=== PATIENT | male | born 1950 | race Caucasian/White ===

== ENCOUNTER → 2018-03-06 07:05 | Outpatient (CLI) | payer MEDICARE, OTHER, SELFPAY ==
--- NOTE | 2018-03-06 07:09 | DI.RAD.S_ITS ---
PROCEDURE: XR LUMBAR SPINE 2-3V INDICATIONS: pain TECHNIQUE: 3 views of the lumbar spine were acquired. COMPARISON: [facility], , CHEST 2 VIEW, 07/29/2015, 10:53. FINDINGS: Bones: 5 [id number] vertebrae are present. There is there is grade 1 anterolisthesis of L4 on L5, measuring 6 mm. There is multilevel trace retrolisthesis route all levels the remaining lumbar spine. Moderate to severe multilevel disc space narrowing is present most severe at L5-S1. Severe foraminal narrowing is noted at T12. This is an unchanged appearance of T12 compression deformity. Soft tissues: Overlying bowel gas pattern is normal. No suspicious soft tissue calcifications. IMPRESSION: Multilevel degenerative changes as above. No visualized acute fracture or dislocation. However, if clinical concern and/or pain persist, short interval imaging followup in 7-10 days is recommended, as occult injury cannot be definitively excluded. Dictated by: Shelli Kaplan M.D. on 03/06/2018 at 10:34 Approved by: Shelli Kaplan M.D. on 03/06/2018 at 10:36
[2018-03-06 08:26] LABS: Add Manual Diff / Slide Review NO; Basophils Percent Auto 0.2 % (0-2); Eosinophils Percent Auto 2.7 % (2-4); Hematocrit 40.2 % (41-53); Hemoglobin 13.7 g/dL (13.5-17.5); Lymphocytes Percent Auto 29.9 % (25-40); Mean Corpuscular HGB Conc 33.9 % (30-36); Mean Corpuscular Hemoglobin 30.8 PG (26-34); Mean Corpuscular Volume 90.7 fL (80-100); Monocytes Percent Auto 12.5 % (3-14); Neutrophils Absolute Auto 3700 /uL (3000-5900); Neutrophils Percent Auto 54.7 % (50-75); Platelet Count 196 X10^3/uL (150-400); Red Blood Cell Count 4.44 X10^6/uL (4.5-5.9); Red Cell Distribution Width 13.8 % (11.6-14.8); White Blood Cell Count 6.8 X10^3/uL (4.5-11.0)
[2018-03-06 08:35] LABS: Hemoglobin A1C% w Est Avg Glu 5.8 % (4.0-6.0)
[2018-03-06 08:38] LABS: Alanine Aminotransferase 27 IU/L (21-72); Albumin 4.2 g/dL (3.5-5.0); Albumin Globulin Ratio 1.6 (1.0-2.8); Alkaline Phosphatase 72 U/L (38-126); Aspartate Aminotransferase 27 IU/L (17-59); BUN Creatinine Ratio 24.3 (6-22); Blood Urea Nitrogen 17 mg/dL (9-20); Calcium 9.6 mg/dL (8.4-10.2); Carbon Dioxide 32 mmol/L (22-32); Chloride 104 mmol/L (98-107); Cholesterol 131 mg/dL (140-199); Estimated Glomerular Filt Rate > 60.0 mL/min (>60); Globulin 2.7 g/dL (1.7-4.1); Glucose 103 mg/dL (80-110); HDL Cholesterol 38 mg/dL (40-60); HEMOLYSIS < 15 (0-50); LDL Cholesterol Calculated 71 mg/dL (<100); Potassium 4.5 mmol/L (3.4-5.1); Sodium 145 mmol/L (137-145); Total Protein 6.9 g/dL (6.3-8.2); Triglycerides 110 mg/dL (35-150)
[2018-03-06 08:51] LABS: Creatinine Urine Random 112.6 mg/dL
[2018-03-06 09:09] LABS: Microalbumi Creatinin Ratio Ur 5.3 ug/mg CR (<30); Microalbumin Urine Random < 0.6 mg/dL (0-1.6)
[2018-03-06 09:20] LABS: TSH w/ Reflex to FT4 1.35 uIU/mL (0.47-4.68)
[2018-03-06 09:25] LABS: Prostate Specific Antigen Scrn 0.278 ng/mL (0.1-4.0)
== END ==
PROVIDERS: Nurse Practitioner Family; PCP Family Medicine; Visit Provider Family Medicine
DX: E11.9 Type 2 diabetes mellitus without complications (principal); E66.01 Morbid (severe) obesity due to excess calories; Z68.35 Body mass index [BMI] 35.0-35.9, adult; E78.5 Hyperlipidemia, unspecified; I10 Essential (primary) hypertension; M54.5 Low back pain
CPT/HCPCS: 72100; 80053; 80061; 82043; 82570; 83036; 84443; 85025; G0103

== ENCOUNTER → 2018-06-20 07:43 | Outpatient (CLI) | payer MEDICARE, OTHER, SELFPAY ==
[2018-06-20 09:04] LABS: Hemoglobin A1C% w Est Avg Glu 5.9 % (4.0-6.0)
== END ==
PROVIDERS: PCP Family Medicine; Visit Provider Family Medicine
DX: E11.9 Type 2 diabetes mellitus without complications (principal); E66.01 Morbid (severe) obesity due to excess calories; Z68.35 Body mass index [BMI] 35.0-35.9, adult
CPT/HCPCS: 36415; 83036

== ENCOUNTER → 2019-06-29 11:50 | Outpatient (CLI) | payer MEDICARE, OTHER, SELFPAY ==
[2019-06-29 13:33] LABS: Hemoglobin A1C% w Est Avg Glu 5.5 % (4.0-6.0)
[2019-06-29 13:40] LABS: Add Manual Diff / Slide Review NO; Basophils Absolute Auto 0 /uL (0-100); Basophils Percent Auto 0.3 % (0-2); Eosinophils Absolute Auto 200 /uL (0-450); Eosinophils Percent Auto 2.5 % (2-4); Hematocrit 42.9 % (41-53); Hemoglobin 14.7 g/dL (13.5-17.5); Lymphocytes Absolute Auto 2600 /uL (1100-4500); Lymphocytes Percent Auto 39.7 % (25-40); Mean Corpuscular HGB Conc 34.3 % (30-36); Mean Corpuscular Hemoglobin 31.1 PG (26-34); Mean Corpuscular Volume 90.6 fL (80-100); Monocytes Absolute Auto 800 /uL (0-900); Monocytes Percent Auto 12.9 % (3-14); Neutrophils Absolute Auto 2900 /uL (1500-7000); Neutrophils Percent Auto 44.6 % (50-75); Platelet Count 200 X10^3/uL (150-400); Red Blood Cell Count 4.73 X10^6/uL (4.5-5.9); Red Cell Distribution Width 13.7 % (11.6-14.8); White Blood Cell Count 6.6 X10^3/uL (4.5-11.0)
[2019-06-29 14:12] LABS: Alanine Aminotransferase 28 IU/L (<50); Albumin 4.8 g/dL (3.5-5.0); Albumin Globulin Ratio 1.8 (1.0-2.8); Alkaline Phosphatase 83 U/L (38-126); Aspartate Aminotransferase 35 IU/L (17-59); BUN Creatinine Ratio 27.1 (6-22); Bilirubin Total 0.9 mg/dL (0.2-1.3); Blood Urea Nitrogen 19 mg/dL (9-20); Calcium 10.1 mg/dL (8.4-10.2); Carbon Dioxide 32 mmol/L (22-32); Chloride 100 mmol/L (98-107); Cholesterol 169 mg/dL (140-199); Estimated Glomerular Filt Rate > 60.0 mL/min (>60); Globulin 2.6 g/dL (1.7-4.1); Glucose 106 mg/dL (80-110); HDL Cholesterol 42 mg/dL (40-60); HEMOLYSIS < 15 (0-50); LDL Cholesterol Calculated 96 mg/dL (<100); Potassium 4.9 mmol/L (3.4-5.1); Sodium 140 mmol/L (137-145); Total Protein 7.4 g/dL (6.3-8.2); Triglycerides 155 mg/dL (35-150)
[2019-06-29 14:38] LABS: Prostate Specific Antigen Scrn 0.324 ng/mL (0.1-4.0)
== END ==
PROVIDERS: PCP Family Medicine; Visit Provider Family Medicine
DX: E11.9 Type 2 diabetes mellitus without complications (principal); Z12.5 Encounter for screening for malignant neoplasm of prostate
CPT/HCPCS: 36415; 80053; 80061; 83036; 85025; G0103

== ENCOUNTER → 2019-07-31 08:01 | Outpatient (CLI) | payer MEDICARE, OTHER, SELFPAY ==
[2019-07-31 09:49] LABS: Add Manual Diff / Slide Review NO; Basophils Absolute Auto 0 /uL (0-100); Basophils Percent Auto 0.2 % (0-2); Eosinophils Absolute Auto 200 /uL (0-450); Eosinophils Percent Auto 2.8 % (2-4); Hematocrit 39.3 % (41-53); Hemoglobin 13.6 g/dL (13.5-17.5); Lymphocytes Absolute Auto 2400 /uL (1100-4500); Lymphocytes Percent Auto 42.1 % (25-40); Mean Corpuscular HGB Conc 34.5 % (30-36); Mean Corpuscular Volume 89.7 fL (80-100); Monocytes Absolute Auto 800 /uL (0-900); Neutrophils Absolute Auto 2400 /uL (1500-7000); Neutrophils Percent Auto 41.9 % (50-75); Platelet Count 178 X10^3/uL (150-400); Red Blood Cell Count 4.38 X10^6/uL (4.5-5.9); Red Cell Distribution Width 13.6 % (11.6-14.8); White Blood Cell Count 5.8 X10^3/uL (4.5-11.0)
[2019-07-31 10:07] LABS: Hemoglobin A1C% w Est Avg Glu 5.5 % (4.0-6.0)
[2019-07-31 10:12] LABS: Carbon Dioxide 30 mmol/L (22-32); Chloride 104 mmol/L (98-107); HEMOLYSIS < 15 (0-50); Sodium 141 mmol/L (137-145)
== END ==
PROVIDERS: Orthopaedic Surgery Adult Reconstructive Orthopaedic Surgery; PCP Family Medicine; Visit Provider Family Medicine
DX: Z01.818 Encounter for other preprocedural examination (principal); Z01.812 Encounter for preprocedural laboratory examination; R73.9 Hyperglycemia, unspecified
CPT/HCPCS: 36415; 80051; 83036; 85025; 93005

== ENCOUNTER 2019-09-07 06:15 | Day surgery (SDC) | payer MEDICARE, OTHER, SELFPAY ==
[2019-09-03 07:33] VITALS: BMI 31.9
[2019-09-07] VITALS (15 sets, daily range): BP systolic 94–121; BP diastolic 52–72; PULSE 62–89; RESP 14–20; TEMP 36.2–37.6; O2SAT 77–98; BMI 30.7
--- NOTE | 2019-09-07 | DI.RAD.S_ITS ---
PROCEDURE: XR KNEE RT 1TO2V INDICATIONS: post op TECHNIQUE: 2 view(s) of the knee acquired. COMPARISON: None. FINDINGS: Bones: Patient is status post knee joint arthroplasty. Hardware components are in expected positions. Visualized bony structures are intact. Soft tissues: Overlying postoperative changes are noted. IMPRESSION: Normal alignment after right total knee arthroplasty. Dictated by: Joseph Gar M.D. on 09/07/2019 at 10:51 Approved by: Joseph Gar M.D. on 09/07/2019 at 10:51
[2019-09-07] MEDS: PREGABALIN 75 MG CAPSULE PO (06:54)
[2019-09-07] MEDS: CELECOXIB 200 MG CAPSULE PO (06:54)
[2019-09-07] MEDS: ACETAMINOPHEN 325 MG TABLET 975 MG PO (06:54)
[2019-09-07] MEDS: LACTATED RINGERS 1,000 ML 42 ML IV ×2 (06:55→10:22)
--- NOTE | 2019-09-07 07:44 | PM.PREOP ---
Pre-operative Note Interval Note History & Physical reviewed/Exam performed by Physician: Yes Changes to H&P: No H&P completed within 30 days and has changed as indicated here:: Plan for R TKA
[2019-09-07] MEDS: CEFAZOLIN 2 GM/100 ML FROZ.PIGGY IV ×3 (07:46→23:34)
[2019-09-07] MEDS: TRANEXAMIC ACID 1,000 MG VIAL 1000 MG INJ (08:14)
--- NOTE | 2019-09-07 08:24 | SUR.OPER ---
Supine on padded OR bed. Pillow under head, arms secured on padded armboards <90 degree abduction. Safety belt across torso. Non-operative leg secured with tape over blanket over lower leg. Operative leg on foam roller positioner. bump under right hip.
[2019-09-07] MEDS: ROPIVACAINE 0.5% PF 5 MG/ML 20ML VIAL 60 ML INJ (08:39)
[2019-09-07] MEDS: MORPHINE 4 MG/ML INJ INJ (08:41)
[2019-09-07] MEDS: KETOROLAC 30 MG/ML VIAL IV (08:41)
[2019-09-07] MEDS: SODIUM CHLORIDE IRRIG SOLUTION 250 ML, POVIDONE-IODINE SPONGE STICKS 1 APPLIC IRR (08:42)
--- NOTE | 2019-09-07 09:53 | PM.OP.1 ---
Operative Date/Time/Diagnoses Date of procedure: 09/07/19 Time of procedure: 09:53 Pre-op diagnosis: Right knee osteoarthritis Post-op diagnosis: same Procedure & Clinicians Procedure: Right total knee arthroplasty Same procedure as scheduled: Yes Indications: Advanced osteoarthritis of the right knee with valgus deformity Surgeon: Carlos Desouza Ethylene Plant Helper: Александр Pitts Anesthesia Type: General and Spinal Operative Notes Findings: Advanced osteoarthritis of the lateral compartment and valgus deformity of the right knee Closure Type: primary Specimen(s): none sent Prosthetic devices, grafts, tissues, transplants, or devices: [employer] Journey 2 knee size 6 femur (right) Size 5 tibial base plate (right) Size 5-6 right 11 mm deep dish poly 32 mm oval patellar button Estimated Blood Loss (mL): 50 Blood products transfused: none Tourniquet time (min): 90 Procedure in detail: Patient is met in the preoperative holding area where the site and side of surgery were marked by MD all last minute questions were reviewed and answered. Patient was then brought back in the operating room we transferred onto the operating room table and received a spinal anesthetic. He was then placed in the supine position he was induced under general anesthesia. The right lower extremity was then prepped and draped in normal sterile fashion after a nonsterile tourniquet was placed. A surgical time-out was performed verifying the site and side of surgery as well as the name of the patient. The right lower extremity was exsanguinated and the tourniquet was insufflated to 250 mm of mercury. A longitudinal incision was made over the right knee skin incision was made using a 10 blade followed by a new 10 blade down through subcutaneous tissue down to the extensor mechanism. A medial parapatellar arthrotomy was then performed. Large osteophytes off the superior pole of the patella was then removed. A minimal medial peel was then performed and Hoffa's fat pad was excised. The lateral meniscus was then removed. The remnants of the ACL removed although there is very little to begin with. We then drilled into the femoral canal approximately 0.5 cm anterior to the PCL footprint within drilled to gain access the tibial canal approximately at the ACL footprint. The right distal femur was then cut using a right 5 degree cutting jig. A chad was then placed on the center of the tibia and a 3 degree posterior slope cut was performed. A 9 mm thick extension block was then trialed and was found to be too tight globally as well as laterally. Two more mm were taken off the distal femur as well as 2 more mm off the proximal tibia. A lateral pie crusting was then performed as well. This was repeated several times until the lateral joint space was roughly equal to the medial joint space. At this point a 10 mm extension block fit well. We moved on to sizing the femur. The femur sized to a size 6 and the 5 in 1 cutting block was then placed. Our epicondylar axis was marked and are Whitesides line was also marked we had external rotation of the femoral component. Cuts were then made. A trial size 6 right femur was then placed was a size 5 tibia with a 10 mm poly. This came out to full extension and does have some medial jogging but I think within acceptable limits. The patella was then cut with a freehand and a 32 mm size patella was drilled for. Patella was placed and the patella tracked well. No lateral release was required for patellar tracking. Trial components were then removed after marking tibial base plate rotation. The size 5 tibial base plate was appropriately sized. This was then drilled and punched. Cement was then removed the cut surfaces were then pulse lavaged. And dried. Cement was then finger packed into the tibial hole as well as the tibial cut surface was placed on the back of the tibia. This was then placed and impacted. All excess cement was then removed cement was then placed on the anterior distal and posterior chamfer cut of the femur. This was finger packed as well. Cement was also placed minimally on the posterior flange of the femoral component. This was then malleted into place all excess cement was removed and a size 10 trial poly was then placed the knee was brought into full extension while holding the lower leg in internal rotation. The patella was then cemented and clamped in place all excess cement was removed. Betadine solution was placed in the wound while the cement cured. Once the cement was cured Betadine solution was pulse lavaged away the trial poly was removed all excess cement was removed any loose pieces that we saw were also removed. We then trialed with a size 11 deep dish poly and found this to still reach full extension while improving medial lateral stability. This was selected. A final size 11 mm thick 5 6 deep dish right poly was selected and placed. The medial parapatellar arthrotomy was closed using 1. Vicryl in interrupted fashion followed by 2 Vicryl in the subcutaneous tissue followed by a strata fix followed by Aquacel dressing. Complications: none Post-operative Condition: stable Disposition: PACU Plan for aftercare: Weightbearing as tolerated right lower extremity. Six weeks of aspirin 81 mg b.i.d. for DVT prophylaxis. 24 hours of postop antibiotics
[2019-09-07] MEDS: OXYCODONE IR 5 MG TABLET PO ×2 (10:26→17:45)
--- NOTE | 2019-09-07 10:56 | PC.NURSE ---
Addendum entered by Cydney Salazar R.N. 09/07/19 15:12: Patient up with physical therapy, voided a good amount of urine per patient and physical therapist. Urine was unmeasured. Addendum entered by Cydney Salazar R.N. 09/07/19 14:26: Patient denies need to void, bladder scanned for 236cc. Patient reports voiding at home this am before coming to the hospital. PACU nurse reports no void while in the OR or in recovery. PAtient will get out of bed with therapy and attempt to void while up. Original Note: Patient drowsy but easily aroused, rates pain to right knee 3/10, given 5mg PO oxycodone in PACU. Sats on RA while sleeping 91-92%, CMS+, scd's on, denies nausea. Pt oriented to room and call light.
[2019-09-07] MEDS: LACTATED RINGERS 1,000 ML 125 ML IV ×2 (10:59→20:40)
[2019-09-07 11:31] LABS: Add Manual Diff / Slide Review NO; Basophils Absolute Auto 0 /uL (0-100); Basophils Percent Auto 0.2 % (0-2); Eosinophils Absolute Auto 100 /uL (0-450); Hematocrit 35.3 % (41-53); Hemoglobin 12.2 g/dL (13.5-17.5); Lymphocytes Absolute Auto 1600 /uL (1100-4500); Lymphocytes Percent Auto 15.8 % (25-40); Mean Corpuscular HGB Conc 34.6 % (30-36); Mean Corpuscular Hemoglobin 30.9 PG (26-34); Mean Corpuscular Volume 89.5 fL (80-100); Monocytes Absolute Auto 800 /uL (0-900); Monocytes Percent Auto 7.8 % (3-14); Neutrophils Absolute Auto 7600 /uL (1500-7000); Neutrophils Percent Auto 75.2 % (50-75); Platelet Count 152 X10^3/uL (150-400); Red Blood Cell Count 3.95 X10^6/uL (4.5-5.9); Red Cell Distribution Width 13.7 % (11.6-14.8); White Blood Cell Count 10.1 X10^3/uL (4.5-11.0)
[2019-09-07] MEDS: ACETAMINOPHEN 325 MG TABLET 650 MG PO ×2 (14:37→20:41)
--- NOTE | 2019-09-07 15:43 | PT.IIE ---
Addendum entered and electronically signed by Beata Trevizo PT 09/07/19 15:50: BP was 105/54 sitting EOB before ambulation and 89/49 after activity. Pt was asymptomatic. Original Note: Current Diagnoses Unilateral primary osteoarthritis, right knee (09/07/19) Surgery Performed Operation Date: 09/07/19 07:45 Actual Procedures p Total Knee Arthroplasty(Right) - Carlos Desouza MD Surgical History (Last Updated 09/03/19 @ 08:10 by Usha Pozo RN) Anesthesia (Resolved) History of carpal tunnel repair (~1993) History of rectal sphincterotomy (Resolved ~04/30/06) History of vein stripping (Resolved ~1999) Status post cholecystectomy (~1991) Status post colonoscopy (~2011) Status post rotator cuff repair (~2002) Tear meniscus knee (Resolved ~2006) Medical History (Last Updated 03/03/18 @ 19:43 by Olga Cabral) Diabetes mellitus (Chronic ~1999) Physical Therapy Inpatient Evaluation/Re-Eval M1 PT/OT-IP Prior Functional Status Start: 09/07/19 14:40 Freq: NEEDED Status: Active Protocol: Document 09/07/19 15:28 AW (Rec: 09/07/19 15:43 AW [id number]) Medical Review Prior Functional Status Medical History Reviewed Yes Communication Pt is an effective verbal communicator Mobility and Gait Independent without device and without limit for level surface walking Activities of Daily Living and IADL's Independent Social History Household Members spouse,children Living Arrangements House Home Environment High Toilet,Tub/Shower Home Equipment Front Wheel Walker,Straight Cane,Raised Toilet Seat w/ Armrests Employment Status [employer] Employed Additional Social History Comment Pt lives with his , Sarah, who is available 21/01 to assist. 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 M2 PT-IP Current Condition Start: 09/07/19 14:40 Freq: NEEDED Status: Active Protocol: Document 09/07/19 15:28 AW (Rec: 09/07/19 15:43 AW [id number]) Physical Therapy Current Condition Current Condition Evaluation Date 09/07/19 Treatment Diagnosis R TKA; impaired mobility Onset Date 09/07/19 Weight Bearing Status Weight Bearing Status Weight Bear as Tolerated M3 PT-IP Subjective Start: 09/07/19 14:40 Freq: NEEDED Status: Active Protocol: Document 09/07/19 15:28 AW (Rec: 09/07/19 15:43 AW [id number]) Subjective Physical Therapy Visit Type Type Initial Evaluation Visit Start Time 14:45 Visit Stop Time 15:20 Total Visit Minutes 35 Notes Pt's spouse, Sarah, present throughout evaluation Physical Therapy Visit Comments Patient Comments Pt happy to mobilize with PT Patient Goals Pt expects to return home with spouse assist Therapy Pain Assessment Pain When Pain Assessed During Mobility Pain Present Pain Present Pain Reported Location lower back and knees Intensity 3 Scale Used Numeric (1 - 10) Pain Management Techniques Apply Cold,Re-positioning, Timing of Activity with Medications M4 PT-IP Mobility and Gait Start: 09/07/19 14:40 Freq: NEEDED Status: Active Protocol: Document 09/07/19 15:28 AW (Rec: 09/07/19 15:43 AW [id number]) PT-Bed Mobility Assessment Supine to Sit Supine to Sit Contact Guard Assistance Scooting Scooting to Edge of Bed Standby Assistance PT-Transfer Assessment Sit to and From Stand Sit to and from Stand Contact Guard Assistance,Use of Upper Extremities Equipment Transfer Assistive Device Gait Belt,Front Wheeled Walker Orthotic/Prosthetic Devices or Brace: No Transfers Transfer Destination Chair Transfer Technique pt ambulated with FWW Transfer Ability Level of Assist Contact Guard Assistance Comments Mobility Comments Pt sitting up in bed visiting with his upon PT arrival. He completed supine to sit CGA with support for the operative leg. He stood using FWW CGA and ambulated to the bathroom where he stood to void urine using grab bars for support. (Unmeasured void reported to RN) He then ambulated in the hallway for gait assessment with FWW before returning to the room and transferring to the chair CGA and cues for positioning the RLE. Pt was positioned in the chair with call light and all needs within reach. He was educated to use the call light for all mobility needs. Gait Assessment Gait Gait Assistance Required: Contact Guard Assist Distance (Feet) 75 Able to Maintain Weight Bearing Status Yes During Gait Assistive Devices Assistive Device Gait Belt,Front Wheeled Walker Orthotic/Prosthetic Devices or Brace: No Gait Deviations General Gait Pattern Antalgic,Decreased Stride Length,Decreased Feet Clearance,Flexed Trunk,Step-to Gait Factors Limiting Gait Function Factors Limiting Gait Function Decreased Activity Tolerance, Decreased Strength,Limited Range of Motion,Pain Comments Gait Comments Pt ambulated ~75 feet with FWW CGA. Initial gait pattern was step-to but pt was able to correct without cues. Stair Climbing Assessment Comments Stair Climbing Comments Not assessed. No stairs at home. PT-Balance Assessment Sitting Balance and Reactions Static Sitting Balance Ability Normal Dynamic Sitting Balance Ability Normal Standing Balance and Reactions Static Standing Balance Ability Good Dynamic Standing Balance Ability Good Device Used FWW M5 PT-IP Objective Assessments Start: 09/07/19 14:40 Freq: NEEDED Status: Active Protocol: Document 09/07/19 15:28 AW (Rec: 09/07/19 15:43 AW [id number]) Orientation Orientation/Cognition Level of Alertness Alert Orientation Name,Date,Day of Week,Place, Situation Language Function Ability No Deficits Noted Safety Awareness Understands Safety Issues Memory Description No Deficits Noted Gross Range of Motion Lower Extremity ROM Assessment Right Impaired Strength Lower Extremity Strength Assessment Right Impaired Comments Strength Comments LLE grossly 5/5. R hip and ankle 4+/5. Coordination Assessment Gross Coordination Gross Coordination WNL Sensation Assessment Sensation Gross Sensation Right LE Impaired,Left LE Impaired Comments Sensation Comments Pt notes he has occasional episodes of numb/tingling feet which he attributes to diabetic neuropathy. M6 PT-IP Treatment Start: 09/07/19 14:40 Freq: NEEDED Status: Active Protocol: Document 09/07/19 15:28 AW (Rec: 09/07/19 15:43 AW [id number]) Physical Therapy Treatment Exercises Exercises Ankle Pumps,Quad Sets,Heel Slides,Passive Knee Extension Hang Education Education Provided Precautions,Weight Bearing Status,Post-Op Packet,Safety Other Treatments Other Treatment Performed Provided education on role of PT, plan of care, weightbearing status, and safe use of FWW M7 PT-IP Assessment and Plan Start: 09/07/19 14:40 Freq: NEEDED Status: Active Protocol: Document 09/07/19 15:28 AW (Rec: 09/07/19 15:43 AW [id number]) PT Summary Assessment and Plan Potential Rehabilitation Potential Excellent Status of Condition at Evaluation Evolving Summary Impairments Pain,ROM,Strength,Sensation, Bed Mobility,Transfers,Gait, Activity Tolerance Assessment Summary Deepak is a 69 yo man seen for PT evaluation on POD0 following R TKA. At baseline, he is independent in all regards. On evaluation, he required SBA to CGA for all mobilties. PT anticipates he will meet the goals of this plan of care and be safe to discharge to his home environment with spouse support and outpatient PT once medically stable. Goals Bed Mobility Goal Independent Transfer Goal Independent,Front Wheeled Walker Gait Goal Independent,Front Wheel Walker Gait Distance 200 Days to Meet Goals 2 Frequency of Treatment Frequency Of Treatment Twice a Day Treatment Plan Physical Therapy Treatment Plan Bed Mobility Training,Transfer Training,Gait Training, Therapeutic Exercise,Balance Retraining,Post Op Education, Discharge Planning,Hot or Cold Pack,Neuromuscular Re-ed, Coordination Retraining,Manual Therapy Other Recommendations and Next Treatment review ther ex, progress gait Focus distance, ask spouse about any caregiver questions she may have Recommendations To Nursing Amount of Assist Needed Standby Assistance Discharge Recommendations PT Discharge Recommendations Home with Assistance, Outpatient PT Transportation Needs at Discharge Private Vehicle
[2019-09-07] MEDS: DOCUSATE 100 MG CAPSULE PO (20:40)
[2019-09-07] MEDS: ASPIRIN EC 81 MG TABLET PO (20:40)
[2019-09-07] MEDS: ATORVASTATIN 10 MG TABLET PO (20:40)
--- NOTE | 2019-09-07 20:59 | PC.NURSE ---
Patient resting in bed most of the shift. Up a couple of times to use the bathroom. Pain has been controlled well with Tylenol and oxycodone. CMS +, Joyg CDI. Patient has been A&O, calm and cooperative.
[2019-09-08] MEDS: OXYCODONE IR 5 MG TABLET PO ×3 (04:03→12:08)
[2019-09-08] MEDS: hydrOXYzine pamoate 25 MG CAPSULE PO ×2 (05:02→12:14)
[2019-09-08 06:14] LABS: Hematocrit 33.5 % (41-53); Hemoglobin 11.6 g/dL (13.5-17.5)
[2019-09-08] MEDS: ACETAMINOPHEN 325 MG TABLET 650 MG PO (07:56)
[2019-09-08] MEDS: DOCUSATE 100 MG CAPSULE PO (07:56)
[2019-09-08] MEDS: ASPIRIN EC 81 MG TABLET PO (07:56)
[2019-09-08] MEDS: CANDESARTAN 16 MG TABLET 4 MG PO (07:56)
[2019-09-08] MEDS: SODIUM CHLORIDE 0.9% FLUSH 10 ML IV (07:57)
[2019-09-08 08:00] VITALS: BP 132/61; PULSE 994; RESP 17; TEMP 36.4; O2SAT 95
--- NOTE | 2019-09-08 10:08 | PT.IPTN ---
Current Diagnoses Unilateral primary osteoarthritis, right knee (09/07/19) Surgery Performed Operation Date: 09/07/19 07:45 Actual Procedures p Total Knee Arthroplasty(Right) - Carlos Desouza MD Physical Therapy Treatment Note M2 PT-IP Current Condition Start: 09/07/19 14:40 Freq: NEEDED Status: Active Protocol: Document 09/07/19 15:28 AW (Rec: 09/07/19 15:43 AW [id number]) Physical Therapy Current Condition Current Condition Evaluation Date 09/07/19 Treatment Diagnosis R TKA; impaired mobility Onset Date 09/07/19 Weight Bearing Status Weight Bearing Status Weight Bear as Tolerated M3 PT-IP Subjective Start: 09/07/19 14:40 Freq: NEEDED Status: Active Protocol: Document 09/08/19 10:08 CLB (Rec: 09/08/19 11:36 CLB [id number]) Subjective Physical Therapy Visit Type Type Treatment Note Visit Start Time 10:08 Visit Stop Time 10:39 Total Visit Minutes 31 Number of AIR TRAFFIC CONTROL SPECIALIST Visits 1 Physical Therapy Visit Comments Patient Comments Pt willing to work with therapy. Therapy Pain Assessment Pain When Pain Assessed At Rest Pain Present Pain Present Pain Reported Location lower back and knees Intensity 5 Scale Used Numeric (1 - 10) 4/10 during mobility Pain Management Techniques Apply Cold,Re-positioning, Timing of Activity with Medications M4 PT-IP Mobility and Gait Start: 09/07/19 14:40 Freq: NEEDED Status: Active Protocol: Document 09/08/19 10:08 CLB (Rec: 09/08/19 11:36 CLB [id number]) PT-Bed Mobility Assessment Supine to Sit Supine to Sit Standby Assistance Scooting Scooting to Edge of Bed Standby Assistance PT-Transfer Assessment Sit to and From Stand Sit to and from Stand Standby Assistance,Use of Upper Extremities Equipment Transfer Assistive Device Gait Belt,Front Wheeled Walker Orthotic/Prosthetic Devices or Brace: No Transfers Transfer Destination Chair Transfer Technique pt ambulated with FWW Transfer Ability Level of Assist Standby Assistance Comments Mobility Comments Pt in bed upon arrival, pt performed ther ex in bed with education on keeping knee straight while in supine. Pt got OOB SBA with use of LLE hooked under RLE. Pt stood SBA recalling the he needed to push from bed for safety. Pt ambulated in room first for education for walker use then in sears with cues for posture and forward gaze. Pt returned to room to sit in chair SBA. Pt left in chair with all needs within reach. Will return to see pt for one more tx before d/c. Gait Assessment Gait Gait Assistance Required: Standby Assistance,Contact Guard Assist,1 Person Assist Distance (Feet) 200 Able to Maintain Weight Bearing Status Yes During Gait Assistive Devices Assistive Device Gait Belt,Front Wheeled Walker Orthotic/Prosthetic Devices or Brace: No Gait Deviations General Gait Pattern Antalgic,Decreased Stride Length,Decreased Feet Clearance,Flexed Trunk,Step-to Gait Factors Limiting Gait Function Factors Limiting Gait Function Decreased Activity Tolerance, Decreased Strength,Limited Range of Motion,Pain Comments Gait Comments Pt ambulated ~200ft with cues for proper sequencing for walker/step use. Pt used small step-thru gait pattern. Stair Climbing Assessment Comments Stair Climbing Comments Not assessed. No stairs at home. PT-Balance Assessment Sitting Balance and Reactions Static Sitting Balance Ability Normal Dynamic Sitting Balance Ability Normal Standing Balance and Reactions Static Standing Balance Ability Good Dynamic Standing Balance Ability Good Device Used FWW M5 PT-IP Objective Assessments Start: 09/07/19 14:40 Freq: NEEDED Status: Active Protocol: Document 09/07/19 15:28 AW (Rec: 09/07/19 15:43 AW [id number]) Orientation Orientation/Cognition Level of Alertness Alert Orientation Name,Date,Day of Week,Place, Situation Language Function Ability No Deficits Noted Safety Awareness Understands Safety Issues Memory Description No Deficits Noted Gross Range of Motion Lower Extremity ROM Assessment Right Impaired Strength Lower Extremity Strength Assessment Right Impaired Comments Strength Comments LLE grossly 5/5. R hip and ankle 4+/5. Coordination Assessment Gross Coordination Gross Coordination WNL Sensation Assessment Sensation Gross Sensation Right LE Impaired,Left LE Impaired Comments Sensation Comments Pt notes he has occasional episodes of numb/tingling feet which he attributes to diabetic neuropathy. M6 PT-IP Treatment Start: 09/07/19 14:40 Freq: NEEDED Status: Active Protocol: Document 09/08/19 10:08 CLB (Rec: 09/08/19 11:36 CLB [id number]) Physical Therapy Treatment Exercises Exercises Ankle Pumps,Quad Sets,Heel Slides,Straight Leg Raises, Short Arc Quads,Passive Knee Extension Hang,Seated Knee Flexion/Extension Knee ROM Measurement 70 degrees Education Education Provided Precautions,Weight Bearing Status,Post-Op Packet,Safety M7 PT-IP Assessment and Plan Start: 09/07/19 14:40 Freq: NEEDED Status: Active Protocol: Document 09/08/19 10:08 CLB (Rec: 09/08/19 11:36 CLB [id number]) PT Summary Assessment and Plan Potential Rehabilitation Potential Excellent Status of Condition at Evaluation Evolving Summary Impairments Pain,ROM,Strength,Sensation, Bed Mobility,Transfers,Gait, Activity Tolerance Assessment Summary Pt improving with mobility but will require a second treat today to improve gait with walker for safety. CG training with is scheduled for 1300 this afternoon. Goals Bed Mobility Goal Independent Transfer Goal Independent,Front Wheeled Walker Gait Goal Independent,Front Wheel Walker Gait Distance 200 Days to Meet Goals 2 Frequency of Treatment Frequency Of Treatment Twice a Day Treatment Plan Physical Therapy Treatment Plan Bed Mobility Training,Transfer Training,Gait Training, Therapeutic Exercise,Balance Retraining,Post Op Education, Discharge Planning,Hot or Cold Pack,Neuromuscular Re-ed, Coordination Retraining,Manual Therapy Other Recommendations and Next Treatment CG training Focus gait training to increase safety with FWW Recommendations To Nursing Amount of Assist Needed Standby Assistance Discharge Recommendations PT Discharge Recommendations Home with Assistance, Outpatient PT Transportation Needs at Discharge Private Vehicle
--- NOTE | 2019-09-08 11:11 | CM.DANOTE ---
DCP/Assessment: Reviewed chart. Patient is a 69yr old male admitted to [facility] for right TKA performed on 09-07-[address] Desouza. PCP is Dr. Costello. Primary payor is 1)Medicare 2)Aet. Met with patient explained CM/SW role. Patient reports that he plans to d/c home today. Patient has supportive spouse/Sarah. Patient resides in single level residence. Patient plans to do outpatient therapy. First visit scheduled for 04-15-20 in [place]. Patient has therapy evaluation pending and denies d/c planning needs. P: Home today. LUKAS Mccoy Discharge Planning/Care Management CM Discharge Assessment Start: 09/08/19 11:05 Freq: Status: Active Protocol: Document 09/08/19 11:06 KJ (Rec: 09/08/19 11:11 KJ [id number]) Discharge Planning Assessment Assigned Computer Security Coordinator LUKAS Mccoy Contact Information Sarah Fitch (spouse) Advance Directives? No History Provided By Patient,Medical Record Prior Living Arrangements House Household Members spouse,children Type of transporation used prior to Drives own vehicle admit Independent with ADL's Yes Is patient alert and oriented? Yes Caregiver for Another No Patient/Family Preference OP PT Therapy Barriers to Discharge No Discharge Plan Home Transportation Arrangement Family to provide transport home. Referrals Initiated None needed Whiteboard Updated in Patient Room with Yes name and ext. # of Computer Security Coordinator Review Status In Process Next Review Type Continued Stay Review Pre-Anesthesia Assessment Start: 09/03/19 07:33 Freq: Status: Complete Protocol: Document 09/03/19 07:33 CAB (Rec: 09/03/19 09:41 CAB [email or web address]) Pre-Anesthesia Assessment PAC Comment Pre-op EKG, Echo reviewed w/griffin Black to proceed Patient Information Reviewed Via Phone Assessment Assessment Completed With Patient Diagnostic Results BMP/CMP,CBC,EKG Comment Labs/EKG @ 07/31/19 Primary Care Provider Sina Costello Seen Specialist in Last 12 Months Yes Specialist Seen Orthopedist Primary Language Syriac Senior Consulting Manager Required No Height 172.72 cm Weight 95.254 kg Body Mass Index (BMI) 31.9 Hearing Ability Normal Visual Assist Glasses Dentition Type Teeth, Natural Present,Teeth, Missing Barriers to Learning None Other Aids No Hx Anesthesia Reactions No Hx Family Anesthesia Reaction Yes: Brother-Pt unsure reaction Hx Malignant Hyperthermia No Hx Blood Transfusions No Anesthesia Review Requested No alcohol intake current alcohol intake frequency holidays/special occasions only Smoking Status Former smoker how long ago did patient quit smoking Quit 01/05/1982 Substance Use Type does not use Pain Present Pain Reported Musculoskeletal Symptoms Abnormal Gait,Difficulty Walking,Joint Pain,Muscle Weakness,Neck Pain History of Falling (Recent or History of No ) Patient is completely paralyzed or No completely immobile Mental Status Oriented to own ability Comment Imbalance Is patient on oxygen? No Does patient have VIRK/SOB No Hx Sleep Apnea No Currently Taking a Beta Joe No Can You Climb a Flight of Stairs Without Yes SOB Hx Chest Pain No Hx SOB No Hx Syncope or Dizziness No Anti-Coagulant Therapy No Has a Deputy Sheriff Civil Division No Cardiac Testing Yes: Echo 09/01/19 for abnormal pre-op EKG Hx Pacemaker/ICD No Pacemaker Rep Required? No Cardiac Clearance Received Not Applicable Comment Echo scanned to record Additional comment Pt is very active, owns [email or web address] Diet Type At Home Regular dysphagia No Genitourinary Symptoms Dribbling Urinary Catheter Present No Hx Urinary Self Catheterization No Diabetes Yes HgbA1C 5.5 Date 07/31/19 Hx Drug Resistant Organism No Presence of External or Internal Medical No Devices Forrest exposure No Have you had any close contact with No someone diagnosed with NOVEL CORONAVIRUS ? Have you traveled outside the [facility] States in the last 30 days? Marital Status Lives With spouse,children Prior Living Arrangements House Number of Floors (Floors) One Floor Support System Child/Children,Spouse Does the Patient Have Assistance After Yes Surgery Patient Discharge Plan Description Return Home Comment Pt advised 1 day length of stay per surgeon Feels Safe in Current Environment Yes Been Physically Hurt or Threatened By a No Person in Current Environment Do you have thoughts of harming yourself None or others? Are you currently considering suicide? No Do you have a plan to hurt yourself or No Plan others? Do You Have Any Spiritual Beliefs That No May Affect Your HC Choices? Do You Have Any Cultural Practices That No May Affect Your HC Choices? Comment Cathollic Who Can We Speak to About Patient's Care Family, friends Identifying Code for Release of Patient Declines to issue Information Health Care Proxy/Next of Kin Sarah () Health Care Proxy Emergency Contact Name Sarah () Emergency Contact Advance Directives? No Power of Hander In No PAC Instructions Diabetes instructions,Durable medical equipment,Medications to take/avoid,Nasal antibiotic ,No ETOH/petroleum product on skin DOS,Post-op transportation,Pre-surgical wash,Sturdy shoes/comfortable clothes,Do not bring valuables and remove jewelry
[2019-09-08 12:00] VITALS: BP 112/59; PULSE 82; RESP 16; TEMP 36.8; O2SAT 96
--- NOTE | 2019-09-08 12:06 | P.PN_ITS ---
Subjective Subjective Date Patient Seen: 09/08/19 Time Patient Seen: 07:30 Interval history: POD #1 s/p right total knee arthroplasty w Dr. Desouza. No acute events overnight. Patient complains of mild pain in right knee. Voiding without difficulty or assistance. Mobilizing well with PT. Patient denies fever, chills, chest pain, shortness of breath, nausea, pain in calves Exam Vital Signs (past 8 hours): - 09/08/19 08:00 Temperature 97.6 F Pulse Rate 994 H Respiratory Rate 17 Blood Pressure 132/61 Pulse Oximetry 95 Oxygen Delivery Method Room Air Oxygen Flow Rate 0 Narrative Exam Narrative: 69 yo M is laying comfortably in bed, in no apparent distress. A&Ox3. Dressing CDI, SCDs in place. Able to actively dorsiflex/plantar flex Bl. Sensory function grossly intact to light touch in LE BL. Calves warm, soft, compressible, non tender to palpation BL. Dorsalis pedis 2+ BL. Objective Labs Result Diagrams: 09/08/19 05:40 Labs: Laboratory Results - last 24 hr 09/08/19 05:40 Hgb 11.6 L Hct 33.5 L Assessment & Plan Post-op Postoperative Procedures: Procedures Operation Date: 09/07/19 07:45 Actual Procedures Side Surgeon p Total Knee Arthroplasty Right Carlos Desouza MD Postoperative day: 1 Postoperative status: doing well Postoperative status narrative: s/p right total knee arthroplasty Postoperative plan: discharge Postoperative plan narrative: Patient is ready for discharge home pending ph ysical therapy clearance Patient has prescription at home for oxycodone 5mg ASA 81mg BID for 6 weeks for DVT prophylaxis Patient will see outpatient PT and follow up in clinic in 2 weeks. Time Spent With Patient Time with patient: less than 15 minutes Quality VTE Deep Vein Thrombosis/Pulmonary Embolism Present on Admission: No
--- NOTE | 2019-09-08 12:55 | PT.IPTN ---
Current Diagnoses Unilateral primary osteoarthritis, right knee (09/07/19) Surgery Performed Operation Date: 09/07/19 07:45 Actual Procedures p Total Knee Arthroplasty(Right) - Carlos Desouza MD Physical Therapy Treatment Note M2 PT-IP Current Condition Start: 09/07/19 14:40 Freq: NEEDED Status: Discharge Protocol: Document 09/07/19 15:28 AW (Rec: 09/07/19 15:43 AW [id number]) Physical Therapy Current Condition Current Condition Evaluation Date 09/07/19 Treatment Diagnosis R TKA; impaired mobility Onset Date 09/07/19 Weight Bearing Status Weight Bearing Status Weight Bear as Tolerated M3 PT-IP Subjective Start: 09/07/19 14:40 Freq: NEEDED Status: Discharge Protocol: Document 09/08/19 12:55 CLB (Rec: 09/08/19 15:15 CLB [email or web address]) Subjective Physical Therapy Visit Type Type Treatment Note Visit Start Time 12:55 Visit Stop Time 13:18 Total Visit Minutes 23 Notes Pt's spouse, Sarah, present throughout evaluation Number of DINING ROOM ATTENDANT Visits 2 Physical Therapy Visit Comments Patient Comments Pt willing to work with therapy. Therapy Pain Assessment Pain When Pain Assessed During Mobility Pain Present Pain Present Pain Reported Location lower back and knees Intensity 7 Scale Used Numeric (1 - 10) Pain Management Techniques Apply Cold,Re-positioning, Timing of Activity with Medications M4 PT-IP Mobility and Gait Start: 09/07/19 14:40 Freq: NEEDED Status: Discharge Protocol: Document 09/08/19 12:55 CLB (Rec: 09/08/19 15:15 CLB [email or web address]) PT-Bed Mobility Assessment Supine to Sit Supine to Sit Standby Assistance Scooting Scooting to Edge of Bed Standby Assistance PT-Transfer Assessment Sit to and From Stand Sit to and from Stand Standby Assistance,Use of Upper Extremities Equipment Transfer Assistive Device Gait Belt,Front Wheeled Walker Orthotic/Prosthetic Devices or Brace: No Transfers Transfer Destination Chair Transfer Technique pt ambulated with FWW Transfer Ability Level of Assist Standby Assistance Comments Mobility Comments Pt required SBA for sit<>stand from chair. Pt ambulated in sears ~200ft, pt then returned to chair for seated ther ex. Pt left in room with and RN. Gait Assessment Gait Gait Assistance Required: Standby Assistance Distance (Feet) 200 Able to Maintain Weight Bearing Status Yes During Gait Assistive Devices Assistive Device Gait Belt,Front Wheeled Walker Orthotic/Prosthetic Devices or Brace: No Gait Deviations General Gait Pattern Antalgic,Decreased Stride Length,Decreased Feet Clearance,Flexed Trunk Factors Limiting Gait Function Factors Limiting Gait Function Decreased Activity Tolerance, Decreased Strength,Limited Range of Motion,Pain Comments Gait Comments Pt improved gait quality with cues for forward gaze but improved with walker sequencing. Stair Climbing Assessment Comments Stair Climbing Comments Not assessed. No stairs at home. PT-Balance Assessment Sitting Balance and Reactions Static Sitting Balance Ability Normal Dynamic Sitting Balance Ability Normal Standing Balance and Reactions Static Standing Balance Ability Good Dynamic Standing Balance Ability Good Device Used FWW M5 PT-IP Objective Assessments Start: 09/07/19 14:40 Freq: NEEDED Status: Discharge Protocol: Document 09/07/19 15:28 AW (Rec: 09/07/19 15:43 AW [id number]) Orientation Orientation/Cognition Level of Alertness Alert Orientation Name,Date,Day of Week,Place, Situation Language Function Ability No Deficits Noted Safety Awareness Understands Safety Issues Memory Description No Deficits Noted Gross Range of Motion Lower Extremity ROM Assessment Right Impaired Strength Lower Extremity Strength Assessment Right Impaired Comments Strength Comments LLE grossly 5/5. R hip and ankle 4+/5. Coordination Assessment Gross Coordination Gross Coordination WNL Sensation Assessment Sensation Gross Sensation Right LE Impaired,Left LE Impaired Comments Sensation Comments Pt notes he has occasional episodes of numb/tingling feet which he attributes to diabetic neuropathy. M6 PT-IP Treatment Start: 09/07/19 14:40 Freq: NEEDED Status: Discharge Protocol: Document 09/08/19 12:55 CLB (Rec: 09/08/19 15:15 CLB [email or web address]) Physical Therapy Treatment Exercises Exercises Ankle Pumps,Quad Sets,Heel Slides Knee ROM Measurement 70 degrees Education Education Provided Precautions,Weight Bearing Status,Post-Op Packet,Safety Other Treatments Other Treatment Performed Educated pt and on getting into car. M7 PT-IP Assessment and Plan Start: 09/07/19 14:40 Freq: NEEDED Status: Discharge Protocol: Document 09/08/19 12:55 CLB (Rec: 09/08/19 15:15 CLB [email or web address]) PT Summary Assessment and Plan Potential Rehabilitation Potential Excellent Status of Condition at Evaluation Evolving Summary Impairments Pain,ROM,Strength,Sensation, Bed Mobility,Transfers,Gait, Activity Tolerance Assessment Summary Pt present for tx, pt able to perform all mobility SBA and ambulated in sears ~ 200ft w/FWW/SBA. Pt improved with step/walker sequencing with small step-thru gait pattern. Goals Bed Mobility Goal Independent Transfer Goal Independent,Front Wheeled Walker Gait Goal Independent,Front Wheel Walker Gait Distance 200 Days to Meet Goals 2 Frequency of Treatment Frequency Of Treatment Twice a Day Treatment Plan Physical Therapy Treatment Plan Bed Mobility Training,Transfer Training,Gait Training, Therapeutic Exercise,Balance Retraining,Post Op Education, Discharge Planning,Hot or Cold Pack,Neuromuscular Re-ed, Coordination Retraining,Manual Therapy Recommendations To Nursing Amount of Assist Needed Standby Assistance Discharge Recommendations PT Discharge Recommendations Home with Assistance, Outpatient PT Transportation Needs at Discharge Private Vehicle
--- NOTE | 2019-09-08 13:40 | PC.NURSE ---
DISCHARGE: PATIENT CLEARED PHYSICAL THERAPY FOR DISCHARGE. DR. SALTER CAME BY JUST BEFORE DC HOME AND AGREED TO SEND A SCRIPT [facility] [place] [facility] PATIENT. PATIENT LEFT BY WC W/ REGIONAL COORDINATOR ESCORT AND SPOUSE WITHOUT S/SX'S OF DISTRESS AND ALL BELONGINGS AND PAPERWORK. CONFIRMS UNDERSTANDING.
== END 2019-09-08 13:42 | disposition home or self-care (01) ==
LOC: AC 09-08 07:29 → OR 09-08 13:46
PROVIDERS: PCP Family Medicine; Referring Provider Orthopaedic Surgery Adult Reconstructive Orthopaedic Surgery; Visit Provider Orthopaedic Surgery Adult Reconstructive Orthopaedic Surgery
PROC: 0SRC0JZ Replacement of Right Knee Joint with Synthetic Substitute, Open Approach (ICD-10-PCS; CPT 27447; principal; 2019-09-07 07:45)
DX: M17.11 Unilateral primary osteoarthritis, right knee (principal); M21.061 Valgus deformity, not elsewhere classified, right knee; I10 Essential (primary) hypertension; E11.9 Type 2 diabetes mellitus without complications; Z79.84 Long term (current) use of oral hypoglycemic drugs
CPT/HCPCS: 27447; 36415; 73560; 82962; 85014; 85018; 85025; 94760; 97110; 97116; 97161; C1776; J0690; J1885; J2250; J2270; J2405; J2704; J3010

== ENCOUNTER → 2019-09-28 17:19 | Outpatient (CLI) | payer MEDICARE, OTHER, SELFPAY ==
[2019-09-07 14:37] VITALS: BMI 30.7
[2019-09-28 17:35] LABS: Add Manual Diff / Slide Review NO; Basophils Absolute Auto 0 /uL (0-100); Basophils Percent Auto 0.5 % (0-2); Eosinophils Absolute Auto 200 /uL (0-450); Eosinophils Percent Auto 2.6 % (2-4); Hematocrit 35.2 % (41-53); Lymphocytes Absolute Auto 2600 /uL (1100-4500); Lymphocytes Percent Auto 30.2 % (25-40); Mean Corpuscular HGB Conc 34.2 % (30-36); Mean Corpuscular Hemoglobin 30.4 PG (26-34); Mean Corpuscular Volume 88.9 fL (80-100); Monocytes Absolute Auto 900 /uL (0-900); Monocytes Percent Auto 10.4 % (3-14); Neutrophils Absolute Auto 4900 /uL (1500-7000); Neutrophils Percent Auto 56.3 % (50-75); Platelet Count 321 X10^3/uL (150-400); Red Blood Cell Count 3.96 X10^6/uL (4.5-5.9); Red Cell Distribution Width 13.7 % (11.6-14.8); White Blood Cell Count 8.7 X10^3/uL (4.5-11.0)
[2019-09-28 17:50] LABS: C-Reactive Protein Quant < 0.5 mg/dL (<1.0)
[2019-09-28 17:53] LABS: Erythrocyte Sedimentation Rate 19 MM/HR (0-15)
== END ==
PROVIDERS: PCP Family Medicine; Referring Provider Orthopaedic Surgery Adult Reconstructive Orthopaedic Surgery; Visit Provider Orthopaedic Surgery Adult Reconstructive Orthopaedic Surgery
DX: Z96.651 Presence of right artificial knee joint (principal); M01.X61 Direct infection of right knee in infectious and parasitic diseases classified elsewhere
CPT/HCPCS: 36415; 85025; 85651; 86140

== ENCOUNTER → 2020-07-26 11:44 | Outpatient (CLI) | payer MEDICARE, OTHER, SELFPAY ==
[2019-09-07 14:37] VITALS: BMI 30.7
[2020-07-26 12:42] LABS: BUN Creatinine Ratio 29.4 (6-22); Blood Urea Nitrogen 20 mg/dL (9-20); Calcium 9.3 mg/dL (8.4-10.2); Carbon Dioxide 30 mmol/L (22-32); Chloride 102 mmol/L (98-107); Estimated Glomerular Filt Rate > 60.0 mL/min (>60); Glucose 154 mg/dL (80-110); HEMOLYSIS < 15 (0-50); Hematocrit 42.6 % (41-53); Hemoglobin 14.3 g/dL (13.5-17.5); Mean Corpuscular HGB Conc 33.7 % (30-36); Mean Corpuscular Hemoglobin 30.4 PG (26-34); Mean Corpuscular Volume 90.1 fL (80-100); Platelet Count 178 X10^3/uL (150-400); Potassium 4.2 mmol/L (3.4-5.1); Red Blood Cell Count 4.72 X10^6/uL (4.5-5.9); Red Cell Distribution Width 13.5 % (11.6-14.8); Sodium 138 mmol/L (137-145)
[2020-07-26 12:44] LABS: Hemoglobin A1C% w Est Avg Glu 7.1 % (4.0-6.0)
[2020-07-26 13:12] LABS: Prostate Specific Antigen Scrn 0.304 ng/mL (0.1-4.0)
[2020-07-26 13:30] LABS: Vitamin B12 457 pg/mL (239-931)
[2020-07-26 13:41] LABS: TSH w/ Reflex to FT4 1.84 uIU/mL (0.47-4.68)
[2020-07-26 15:20] LABS: Vitamin D 25 Hydroxy (D3) 44.1 ng/mL (30.0-100.0)
== END ==
PROVIDERS: PCP Student in an Organized Health Care Education/Training Program; Referring Provider Student in an Organized Health Care Education/Training Program; Visit Provider Student in an Organized Health Care Education/Training Program
DX: Z12.5 Encounter for screening for malignant neoplasm of prostate (principal); E11.9 Type 2 diabetes mellitus without complications; E55.9 Vitamin D deficiency, unspecified; E66.01 Morbid (severe) obesity due to excess calories; Z68.35 Body mass index [BMI] 35.0-35.9, adult; E78.2 Mixed hyperlipidemia; I10 Essential (primary) hypertension; R41.3 Other amnesia
CPT/HCPCS: 36415; 80048; 82306; 82607; 83036; 84443; 85027; G0103

== ENCOUNTER → 2020-11-03 16:56 | Outpatient (CLI) | payer MEDICARE, OTHER, SELFPAY ==
[2019-09-07 14:37] VITALS: BMI 30.7
[2020-11-03 17:38] LABS: Hemoglobin A1C% w Est Avg Glu 6.1 % (4.0-6.0)
[2020-11-03 17:54] LABS: Creatinine Urine Random 170.6 mg/dL
[2020-11-03 17:59] LABS: Microalbumi Creatinin Ratio Ur 3.5 ug/mg CR (<30); Microalbumin Urine Random 0.6 mg/dL (0-1.6)
== END ==
PROVIDERS: PCP Student in an Organized Health Care Education/Training Program; Referring Provider Student in an Organized Health Care Education/Training Program; Visit Provider Student in an Organized Health Care Education/Training Program
DX: E11.9 Type 2 diabetes mellitus without complications (principal)
CPT/HCPCS: 36415; 82043; 82570; 83036

== ENCOUNTER → 2021-05-17 11:48 | Outpatient (CLI) | payer MEDICARE, OTHER, SELFPAY ==
[2019-09-07 14:37] VITALS: BMI 30.7
[2021-05-17 18:26] LABS: Hemoglobin A1C% w Est Avg Glu 5.7 % (4.0-6.0)
== END ==
PROVIDERS: PCP Student in an Organized Health Care Education/Training Program; Referring Provider Student in an Organized Health Care Education/Training Program; Visit Provider Student in an Organized Health Care Education/Training Program
DX: E11.9 Type 2 diabetes mellitus without complications (principal)
CPT/HCPCS: 36415; 83036

== ENCOUNTER → 2021-10-26 10:30 | Outpatient (CLI) | payer MEDICARE, OTHER, SELFPAY ==
[2019-09-07 14:37] VITALS: BMI 30.7
[2021-10-26 11:30] LABS: Hemoglobin A1C% w Est Avg Glu 6.1 % (4.0-6.0)
[2021-10-26 11:37] LABS: Blood Urea Nitrogen 20 mg/dL (9-20); Calcium 9.4 mg/dL (8.4-10.2); Carbon Dioxide 29 mmol/L (22-32); Chloride 108 mmol/L (98-107); Cholesterol 145 mg/dL (140-199); Estimated Glomerular Filt Rate > 60 mL/min (>60); Glucose 129 mg/dL (80-110); HDL Cholesterol 42 mg/dL (40-60); HEMOLYSIS < 15 (0-50); LDL Cholesterol Calculated 77 mg/dL (<100); Potassium 4.3 mmol/L (3.4-5.1); Sodium 142 mmol/L (137-145); Triglycerides 132 mg/dL (35-150)
[2021-10-26 12:40] LABS: Creatinine Urine Random 176.1 mg/dL
[2021-10-26 12:43] LABS: Microalbumi Creatinin Ratio Ur 5.1 ug/mg CR (<30); Microalbumin Urine Random 0.9 mg/dL (0-1.6)
== END ==
PROVIDERS: PCP Student in an Organized Health Care Education/Training Program; Referring Provider Student in an Organized Health Care Education/Training Program; Visit Provider Student in an Organized Health Care Education/Training Program
DX: E11.9 Type 2 diabetes mellitus without complications (principal); E78.5 Hyperlipidemia, unspecified; E11.69 Type 2 diabetes mellitus with other specified complication; I10 Essential (primary) hypertension
CPT/HCPCS: 36415; 80048; 80061; 82043; 82570; 83036

== ENCOUNTER → 2022-05-05 09:09 | Outpatient (CLI) | payer MEDICARE, OTHER, SELFPAY ==
[2019-09-07 14:37] VITALS: BMI 30.7
[2022-05-05 10:38] LABS: Hemoglobin A1C% w Est Avg Glu 6.2 % (4.0-6.0)
[2022-05-05 10:47] LABS: BUN Creatinine Ratio 20.9 (6-22); Blood Urea Nitrogen 18 mg/dL (9-20); Estimated Glomerular Filt Rate > 60 mL/min (>60)
== END ==
PROVIDERS: PCP Student in an Organized Health Care Education/Training Program; Referring Provider Student in an Organized Health Care Education/Training Program; Visit Provider Student in an Organized Health Care Education/Training Program
DX: E11.9 Type 2 diabetes mellitus without complications (principal); Z79.1 Long term (current) use of non-steroidal anti-inflammatories (NSAID)
CPT/HCPCS: 36415; 82565; 83036; 84520

== ENCOUNTER → 2022-05-28 13:30 | Outpatient (CLI) | payer MEDICARE, OTHER, SELFPAY ==
[2019-09-07 14:37] VITALS: BMI 30.7
--- NOTE | 2022-05-28 13:33 | DI.RAD.S_ITS ---
PROCEDURE: XR FOOT RT MIN 3V INDICATIONS: RIGHT FOOT PAIN TECHNIQUE: 3 views of the foot were acquired. COMPARISON: None. FINDINGS: Bones: No fractures or dislocations. No suspicious bony lesions. Moderate hallux valgus metatarsus prima varus alignment and medial bunion. Mild 1st MTP and diffuse interphalangeal joint space narrowing with periarticular osteophyte formation. Juxta-articular lucencies involve the 1st MTP joint. Mild diffuse midfoot joint space narrowing with dorsal osteophytosis. Moderate subtalar joint space narrowing. Soft tissues: No tibiotalar joint effusion. Achilles tendon appears normal. Vascular calcifications indicate atherosclerosis. IMPRESSION: 1. Moderate hallux valgus alignment and medial bunion. 2. Diffuse hindfoot, midfoot and forefoot joint degeneration. 3. Juxta-articular lucencies of the 1st MTP joint consistent with subchondral cystic change versus bony erosions. Dictated by: Jordon Jimenez [facility] Interpreted: Shelli Kaplan MD on 05/28/2022 at 13:57 Transcribed by: LEESA on 05/28/2022 at 13:59 Approved by: Shelli Kaplan M.D. on 05/28/2022 at 16:53
== END ==
PROVIDERS: PCP Student in an Organized Health Care Education/Training Program; Referring Provider Podiatrist; Visit Provider Podiatrist
DX: M19.071 Primary osteoarthritis, right ankle and foot (principal); M79.671 Pain in right foot; M20.11 Hallux valgus (acquired), right foot; M21.611 Bunion of right foot
CPT/HCPCS: 73630

== ENCOUNTER → 2022-12-11 15:49 | Outpatient (CLI) | payer MEDICARE, OTHER, SELFPAY ==
[2019-09-07 14:37] VITALS: BMI 30.7
[2022-12-11 16:51] LABS: BUN Creatinine Ratio 21.3 (6-22); Blood Urea Nitrogen 19 mg/dL (9-20); Calcium 9.2 mg/dL (8.4-10.2); Carbon Dioxide 30 mmol/L (22-32); Chloride 100 mmol/L (98-107); Cholesterol 135 mg/dL (140-199); Estimated Glomerular Filt Rate > 60 mL/min (>60); Glucose 126 mg/dL (80-110); HDL Cholesterol 34 mg/dL (40-60); HEMOLYSIS < 15 (0-50); LDL Cholesterol Calculated 63 mg/dL (<100); Potassium 4.5 mmol/L (3.4-5.1); Sodium 136 mmol/L (137-145); Triglycerides 191 mg/dL (35-150)
[2022-12-11 17:37] LABS: Creatinine Urine Random 104.8 mg/dL
[2022-12-11 17:55] LABS: Microalbumin Urine Random < 0.6 mg/dL (0-1.6)
== END ==
PROVIDERS: PCP Pediatrics; Referring Provider Student in an Organized Health Care Education/Training Program; Visit Provider Student in an Organized Health Care Education/Training Program
DX: E11.69 Type 2 diabetes mellitus with other specified complication (principal); E11.9 Type 2 diabetes mellitus without complications; E78.5 Hyperlipidemia, unspecified
CPT/HCPCS: 36415; 80048; 80061; 82043; 82570; 83036

== ENCOUNTER → 2023-03-05 10:05 | Outpatient (CLI) | payer MEDICARE, OTHER, SELFPAY ==
[2019-09-07 14:37] VITALS: BMI 30.7
[2023-03-05 11:21] LABS: Appearance Urine UA CLEAR; Bilirubin Urine UA NEGATIVE (NEGATIVE); Color Urine UA YELLOW; Glucose Urine UA NEGATIVE (Negative); Ketones Urine UA TRACE (NEGATIVE); Leukocyte Esterase Urine UA NEGATIVE (NEGATIVE); Nitrite Urine UA NEGATIVE (Negative); Occult Blood Urine UA NEGATIVE (Negative); Protein Urine UA NEGATIVE (Negative); Specific Gravity Urine UA 1.025 (1.000-1.035)
[2023-03-05 11:30] LABS: Bacteria Urine None Seen; Culture Indicated Urine Cult Not Indicated; Mucus Urine 1+ (Negative); RBC Urine None Seen (0-5/HPF); Squamous Epithelial Cell Urine 1-5 /HPF (0-5/HPF); WBC Urine None Seen (0-5/HPF)
[2023-03-05 11:50] LABS: Hemoglobin A1C% w Est Avg Glu 5.6 % (4.0-6.0)
[2023-03-05 11:52] LABS: Add Manual Diff / Slide Review NO; Basophils Absolute Auto 0 /uL (0-100); Basophils Percent Auto 0.3 % (0-2); Eosinophils Absolute Auto 100 /uL (0-450); Eosinophils Percent Auto 1.9 % (2-4); Hematocrit 39.8 % (41-53); Hemoglobin 13.6 g/dL (13.5-17.5); Lymphocytes Absolute Auto 1800 /uL (1100-4500); Mean Corpuscular HGB Conc 34.2 % (30-36); Mean Corpuscular Hemoglobin 30.9 PG (26-34); Mean Corpuscular Volume 90.4 fL (80-100); Monocytes Absolute Auto 600 /uL (0-900); Monocytes Percent Auto 9.6 % (3-14); Neutrophils Absolute Auto 3600 /uL (1500-7000); Neutrophils Percent Auto 59.2 % (50-75); Platelet Count 172 X10^3/uL (150-400); Red Cell Distribution Width 13.7 % (11.6-14.8); White Blood Cell Count 6.1 X10^3/uL (4.5-11.0)
[2023-03-05 12:02] LABS: Creatinine Urine Random 195.7 mg/dL
[2023-03-05 12:09] LABS: Microalbumi Creatinin Ratio Ur 5.6 ug/mg CR (<30); Microalbumin Urine Random 1.1 mg/dL (0-1.6)
[2023-03-05 12:14] LABS: Alanine Aminotransferase 22 IU/L (<50); Albumin 4.2 g/dL (3.5-5.0); Albumin Globulin Ratio 1.8 (1.0-2.8); Alkaline Phosphatase 74 U/L (38-126); Aspartate Aminotransferase 35 IU/L (17-59); BUN Creatinine Ratio 17.8 (6-22); Bilirubin Total 1.1 mg/dL (0.2-1.3); Blood Urea Nitrogen 16 mg/dL (9-20); Calcium 9.4 mg/dL (8.4-10.2); Carbon Dioxide 30 mmol/L (22-32); Chloride 102 mmol/L (98-107); Estimated Glomerular Filt Rate > 60 mL/min (>60); Globulin 2.4 g/dL (1.7-4.1); Glucose 99 mg/dL (80-110); HEMOLYSIS < 15 (0-50); Potassium 4.6 mmol/L (3.4-5.1); Sodium 137 mmol/L (137-145); Total Protein 6.6 g/dL (6.3-8.2)
[2023-03-05 12:34] LABS: Prostate Specific Antigen Scrn 0.267 ng/mL (0.1-4.0)
[2023-03-05 15:42] LABS: Hep C Virus Ab w/Reflex Quant NEGATIVE s/c (NEGATIVE)
== END ==
PROVIDERS: PCP Pediatrics; Referring Provider Pediatrics; Visit Provider Pediatrics
DX: E11.69 Type 2 diabetes mellitus with other specified complication (principal); E11.9 Type 2 diabetes mellitus without complications; E78.5 Hyperlipidemia, unspecified; I10 Essential (primary) hypertension; M19.90 Unspecified osteoarthritis, unspecified site; R01.1 Cardiac murmur, unspecified; Z12.5 Encounter for screening for malignant neoplasm of prostate
CPT/HCPCS: 36415; 80053; 81001; 82043; 82570; 83036; 84443; 85025; 86803; G0103

== ENCOUNTER 2023-10-31 20:27 | Emergency (ER) | payer OTHER, MEDICARE, SELFPAY ==
[2019-09-07 14:37] VITALS: BMI 30.7
[2023-10-31 20:45] VITALS: BP 121/65; PULSE 66; RESP 18; TEMP 37.2; O2SAT 98; BMI 30.4
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
== END 2023-10-31 23:02 | disposition home or self-care (01) ==
PROVIDERS: Emergency Provider Emergency Medicine; PCP Pediatrics
DX: M25.511 Pain in right shoulder (principal); V89.2XXA Person injured in unspecified motor-vehicle accident, traffic, initial encounter; Y92.410 Unspecified street and highway as the place of occurrence of the external cause
CPT/HCPCS: 73030; 99282; 99283

== ENCOUNTER → 2023-11-11 10:30 | Outpatient (CLI) | payer MEDICARE, OTHER, SELFPAY ==
[2019-09-07 14:37] VITALS: BMI 30.7
[2023-11-11 11:30] LABS: Hemoglobin A1C% w Est Avg Glu 5.7 % (4.0-6.0)
[2023-11-11 11:40] LABS: Alanine Aminotransferase 17 IU/L (<50); Albumin 4.3 g/dL (3.5-5.0); Albumin Globulin Ratio 1.8 (1.0-2.8); Alkaline Phosphatase 73 U/L (38-126); Aspartate Aminotransferase 32 IU/L (17-59); BUN Creatinine Ratio 25.9 (6-22); Blood Urea Nitrogen 22 mg/dL (9-20); Calcium 9.6 mg/dL (8.4-10.2); Carbon Dioxide 31 mmol/L (22-32); Chloride 105 mmol/L (98-107); Cholesterol 125 mg/dL (140-199); Estimated Glomerular Filt Rate > 60 mL/min (>60); Globulin 2.4 g/dL (1.7-4.1); Glucose 100 mg/dL (80-110); HDL Cholesterol 46 mg/dL (40-60); HEMOLYSIS < 15 (0-50); LDL Cholesterol Calculated 64 mg/dL (<100); Potassium 4.4 mmol/L (3.4-5.1); Sodium 139 mmol/L (137-145); Total Protein 6.7 g/dL (6.3-8.2); Triglycerides 75 mg/dL (35-150)
[2023-11-11 11:52] LABS: Free T3, Triiodothyronine Free 3.58 pg/mL (2.77-5.27)
[2023-11-11 12:06] LABS: Thyroid Stimulating Hormone 1.01 uIU/mL (0.47-4.68)
[2023-11-11 12:12] LABS: Creatinine Urine Random 108.9 mg/dL
[2023-11-11 12:17] LABS: Microalbumin Urine Random < 0.6 mg/dL (0-1.6)
== END ==
PROVIDERS: PCP Nurse Practitioner; Referring Provider Nurse Practitioner; Visit Provider Nurse Practitioner
DX: E11.9 Type 2 diabetes mellitus without complications (principal); E11.69 Type 2 diabetes mellitus with other specified complication; F32.A Depression, unspecified; I10 Essential (primary) hypertension; E78.5 Hyperlipidemia, unspecified; Z79.899 Other long term (current) drug therapy
CPT/HCPCS: 36415; 80053; 80061; 82043; 82570; 83036; 84439; 84443; 84481; 93005; 93010

== ENCOUNTER → 2023-12-08 07:01 | Outpatient (CLI) | payer MEDICARE, OTHER, SELFPAY ==
[2019-09-07 14:37] VITALS: BMI 30.7
--- NOTE | 2023-12-08 | DI.MRI.S_ITS ---
PROCEDURE: MR SHOULDER RT WO CON INDICATIONS: Rt shoulder pain TECHNIQUE: Noncontrast oblique coronal T2 fast spin echo with fat saturation, oblique sagittal T1 spin echo and T2 fast spin echo with fat saturation, axial T1 spin echo and T2 fast spin echo with fat saturation through the shoulder. COMPARISON: [facility], CR, XR SHOULDER RT MIN 2V, 10/31/2023, 21:03. FINDINGS: Image quality: Excellent. Rotator cuff: There are postsurgical changes related to rotator cuff repair. There is severe supraspinatus, infraspinatus and subscapularis tendinosis. There is full-thickness tear of the supraspinatus and subscapularis tendons. There is at least high-grade partial thickness tear of the infraspinatus tendon. There is mild supraspinatus and infraspinatus muscle atrophy. Bones and bursae: No bone marrow contusions or fractures. Severe glenohumeral joint degeneration. Prominent cystic changes in humeral head. Widening of AC joint is likely related prior acromioplasty and partial resection of the distal clavicle. Small glenohumeral joint effusion. Capsule and soft tissues: There is circumferential degenerative labral tearing, most pronounced in the superior labrum and posterior labrum. There is partial tear and moderate tendinosis of the long head of the biceps tendon. There is anterior medial dislocation of the long head of the biceps. The intra-articular segment of the long head of the biceps is not well seen, possibly related to tenodesis. The rotator interval appears irregular. The coracohumeral ligament is thickened. IMPRESSION: 1. Postsurgical changes related to rotator cuff tendon repair. There is severe supraspinatus, infraspinatus and subscapularis tendinosis. There is full-thickness tear of the supraspinatus and subscapularis tendons, and at least high-grade partial thickness tear of the infraspinatus tendon. There is mild supraspinatus and infraspinatus muscle atrophy. 2. Moderate tendinosis of the long head of the biceps. There is at least partial-thickness tear of the long head of the biceps tendon which is displaced anteromedially because of tear of the transverse ligament and subscapularis tendon. The intra-articular segment of the long head of the biceps is not well seen, either torn or related to tenodesis. 3. Severe glenohumeral joint degeneration. 4. Acromioplasty and partial resection of the distal clavicle. 5. Degenerative labral tearing. Dictated by: Amrit Hurst M.D. on 12/09/2023 at 10:15 Approved by: Amrit Hurst M.D. on 12/09/2023 at 10:40
== END ==
PROVIDERS: PCP Nurse Practitioner; Referring Provider Orthopaedic Surgery; Visit Provider Orthopaedic Surgery
DX: S46.011A Strain of muscle(s) and tendon(s) of the rotator cuff of right shoulder, initial encounter (principal); S46.111A Strain of muscle, fascia and tendon of long head of biceps, right arm, initial encounter; S43.491A Other sprain of right shoulder joint, initial encounter; M19.011 Primary osteoarthritis, right shoulder; X58.XXXA Exposure to other specified factors, initial encounter; Z98.890 Other specified postprocedural states
CPT/HCPCS: 73221

== ENCOUNTER → 2023-12-23 06:45 | Outpatient (CLI) | payer MEDICARE, OTHER, SELFPAY ==
[2019-09-07 14:37] VITALS: BMI 30.7
--- NOTE | 2023-12-23 07:10 | DI.ECHO.S_ITS ---
[facility] : : [id number] : : [address] : : [id number] : : Phone: [phone] Echocardiogram Report + + :Name: DEVONTE STEWARD Study Date: 12/23/2023 Height: 68 in : :Hospital ReadingLocation: Weight: 206 lb : : Gender: Male BSA: 2.1 m2 : :: 1950 Age: 73 yrs BP: 142/70 mmHg: :Reason For Study: ESSENTIAL HYPERTENSION : :Ordering Physician: KAELYN, : :JAMI Performed By: Kelvin Tillman : :Referring: JAMI ART : + + Interpretation Summary The ejection fraction is estimated to be 55-60%. Left ventricular wall thickness is mildly increased. Diastolic parameters suggest probable normal left ventricular diastolic function and normal filling pressures. The right ventricular systolic function is normal. The right ventricular systolic pressure is estimated to be at least 24.3 mmHg based on an estimated right atrial pressure of 3 mm Hg. There is moderate aortic valve sclerosis. There is mild aortic stenosis. The ascending aorta is mildly enlarged. Procedure: A two-dimensional transthoracic echocardiogram with color flow and Doppler was performed. The study quality was technically adequate. Comparison is made with the echocardiogram of 09/01/2019. The patient was in sinus rhythm with heart rates between 56-63 bpm during the exam. Left Ventricle: The left ventricle is normal in size. Left ventricular wall thickness is mildly increased. The ejection fraction is estimated to be 55- 60%. There are no obvious focal wall motion abnormalities noted but poor endocardial definition reduces the sensitivity for the detection of such. Diastolic parameters suggest probable normal left ventricular diastolic function and normal filling pressures. Right Ventricle: The right ventricle is normal size. The right ventricular systolic function is normal. Atria: The left atrial size is normal. Right atrial size is normal. The interatrial septum grossly appears intact with no obvious evidence for an atrial septal defect. Mitral Valve: The mitral valve is normal. There is no mitral valve stenosis. There is trace mitral regurgitation. Aortic Valve: The aortic valve is trileaflet. HEAVY CALCIFICATION ON LCC. There is moderate aortic valve sclerosis. There is mild aortic stenosis. The peak aortic velocity is 2.32 m/sec. The aortic valve mean gradient is 13.4 mmHg. There is mild aortic regurgitation. Tricuspid Valve: The tricuspid valve is normal. There is no tricuspid stenosis. There is trace tricuspid regurgitation. The right ventricular systolic pressure is estimated to be at least 24.3 mmHg based on an estimated right atrial pressure of 3 mm Hg. Pulmonic Valve: The pulmonic valve is not well visualized. There is no pulmonic valvular stenosis. There is no pulmonic valvular regurgitation. Great Vessels: The aortic root is normal size. The ascending aorta is mildly enlarged. The IVC is of normal diameter and collapses greater than 50% with a sniff. This suggests a low right atrial pressure of 3 mm Hg. Pericardium/ Pleura There is no pericardial effusion. There is no pleural effusion. MMode/2D Measurements & Calculations LVIDd: 4.8 cm LVOT diam: 2.2 cm LVIDs: 3.1 cm Ao root diam: 3.3 cm FS: 34.2 % asc Aorta Diam: 4.1 cm IVSd: 1.2 cm Ao Arch Diam (Prox Trans): 2.5 cm LVPWd: 1.1 cm LV lopez. diameter/BSA (cm/m^2): 2.3 LV sys. diameter/BSA (cm/m^2): 1.5 LA A2 area: 20.8 cm2 RA long axis: 5.2 cm LA A4 area: 16.1 cm2 RA area: 14.6 cm2 LA length (vol): 5.1 cm RA vol: 34.6 ml LA vol: 56.2 ml RA : 16.7 ml/m2 LA vol index: 27.1 ml/m2 IVC diam: 2.2 cm RVD1 (basal): 3.7 cm RVD2 (mid): 3.5 cm TAPSE: 2.1 cm Doppler Measurements & Calculations Ao V2 max: 232.3 cm/sec LVOT Max Lincoln: 110.2 cm/sec Ao V2 mean: 178.1 cm/sec LV V1 max P.9 mmHg Ao max P.6 mmHg LV V1 VTI: 28.8 cm Ao mean P.4 mmHg SUZANNE(I,D): 1.7 cm2 Ao V2 VTI: 61.0 cm SUZANNE(V,D): 1.8 cm2 sev ratio: 0.47 SUZANNE indexed to BSA (cm^2/m^2): 0.84 AI P1/2t: 651.4 msec AI dec slope: 153.3 cm/sec2 MV E max lincoln: 70.0 cm/sec TR max lincoln: 231.0 cm/sec MV A max lincoln: 65.4 cm/sec TR max P.3 mmHg MV E/A: 1.1 PA V2 max: 96.2 cm/sec Med Peak E' Lincoln: 6.4 cm/sec PA V2 mean: 65.7 cm/sec E/E' med: 10.9 PA mean P.9 mmHg Lat Peak E' Lincoln: 7.8 cm/sec PA pr(Accel): 15.6 mmHg E/E' lat: 9.0 E/e' average: 9.9 MV dec time: 0.21 sec SV(LVOT): 106.6 ml Reading Physician:JENNIFER
== END ==
PROVIDERS: PCP Nurse Practitioner; Referring Provider Nurse Practitioner; Visit Provider Nurse Practitioner
DX: I35.2 Nonrheumatic aortic (valve) stenosis with insufficiency (principal); I10 Essential (primary) hypertension; I77.89 Other specified disorders of arteries and arterioles
CPT/HCPCS: 93306

== ENCOUNTER → 2024-05-14 07:00 | Outpatient (CLI) | payer MEDICARE, OTHER, SELFPAY ==
[2019-09-07 14:37] VITALS: BMI 30.7
[2024-05-14 07:47] LABS: Add Manual Diff / Slide Review NO; Basophils Absolute Auto 0 /uL (0-100); Basophils Percent Auto 0.4 % (0-2); Eosinophils Absolute Auto 200 /uL (0-450); Hematocrit 37.8 % (41-53); Hemoglobin 12.9 g/dL (13.5-17.5); Lymphocytes Absolute Auto 2200 /uL (1100-4500); Lymphocytes Percent Auto 37.2 % (25-40); Mean Corpuscular HGB Conc 34.2 % (30-36); Mean Corpuscular Volume 90.5 fL (80-100); Monocytes Absolute Auto 700 /uL (0-900); Monocytes Percent Auto 11.6 % (3-14); Neutrophils Absolute Auto 2800 /uL (1500-7000); Neutrophils Percent Auto 47.8 % (50-75); Platelet Count 182 X10^3/uL (150-400); Red Blood Cell Count 4.18 X10^6/uL (4.5-5.9); Red Cell Distribution Width 13.3 % (11.6-14.8); White Blood Cell Count 5.9 X10^3/uL (4.5-11.0)
[2024-05-14 08:37] LABS: Creatinine Urine Random 111.19 mg/dL
[2024-05-14 08:40] LABS: Hemoglobin A1C% w Est Avg Glu 5.6 % (4.0-6.0)
[2024-05-14 08:43] LABS: Microalbumin Urine Random 0.8 mg/dL (0-1.6)
[2024-05-14 08:43] LABS: Alanine Aminotransferase 17 IU/L (<50); Albumin 3.8 g/dL (3.5-5.0); Albumin Globulin Ratio 1.7 (1.0-2.8); Alkaline Phosphatase 63 U/L (38-126); Aspartate Aminotransferase 27 IU/L (17-59); BUN Creatinine Ratio 20.5 (6-22); Bilirubin Total 0.7 mg/dL (0.2-1.3); Blood Urea Nitrogen 17 mg/dL (9-20); Calcium 9.8 mg/dL (8.4-10.2); Carbon Dioxide 31 mmol/L (22-32); Chloride 106 mmol/L (98-107); Cholesterol 120 mg/dL (140-199); Estimated Glomerular Filt Rate > 60 mL/min (>60); Globulin 2.3 g/dL (1.7-4.1); Glucose 103 mg/dL (80-110); HDL Cholesterol 38 mg/dL (40-60); HEMOLYSIS < 15 (0-50); LDL Cholesterol Calculated 55 mg/dL (<100); Potassium 4.6 mmol/L (3.4-5.1); Sodium 140 mmol/L (137-145); Total Protein 6.1 g/dL (6.3-8.2); Triglycerides 133 mg/dL (35-150)
[2024-05-14 09:00] LABS: Free T3, Triiodothyronine Free 3.03 pg/mL (2.77-5.27); Free T4, Direct Thyroxine 0.73 ng/dL (0.78-2.19)
[2024-05-14 09:13] LABS: Prostate Specific Antigen Scrn 0.258 ng/mL (0.1-4.0)
[2024-05-14 09:14] LABS: Thyroid Stimulating Hormone 1.34 uIU/mL (0.47-4.68)
== END ==
PROVIDERS: PCP Family Medicine; Referring Provider Nurse Practitioner; Visit Provider Nurse Practitioner
DX: D64.9 Anemia, unspecified (principal); E11.69 Type 2 diabetes mellitus with other specified complication; Z12.5 Encounter for screening for malignant neoplasm of prostate; F32.A Depression, unspecified; E78.5 Hyperlipidemia, unspecified; I10 Essential (primary) hypertension; E11.9 Type 2 diabetes mellitus without complications; Z79.899 Other long term (current) drug therapy
CPT/HCPCS: 36415; 80053; 80061; 82043; 82570; 83036; 84439; 84443; 84481; 85025; G0103

== ENCOUNTER → 2024-06-03 09:23 | Outpatient (CLI) | payer MEDICARE, OTHER, SELFPAY ==
[2019-09-07 14:37] VITALS: BMI 30.7
--- NOTE | 2024-06-03 09:26 | DI.RAD.S_ITS ---
PROCEDURE: XR CHEST 2V INDICATIONS: productive cough 9 days, fatigue TECHNIQUE: 2 views of the chest were acquired. COMPARISON: [facility], , CHEST 2 VIEW, 07/29/2015, 10:53. FINDINGS: Surgical changes and devices: None. Lungs and pleura: Lungs are clear. No pleural effusions or pneumothorax. Mediastinum: Mediastinal contours are normal. Heart size is normal. Bones and chest wall: No suspicious bony abnormalities. Soft tissues appear unremarkable. IMPRESSION: No acute cardiopulmonary pathology. Dictated by: Catrachito Gould M.D. on 06/03/2024 at 9:39 Approved by: Catrachito Gould M.D. on 06/03/2024 at 9:39
== END ==
PROVIDERS: PCP Family Medicine; Referring Provider Student in an Organized Health Care Education/Training Program; Visit Provider Student in an Organized Health Care Education/Training Program
DX: R05.8 Other specified cough (principal); R53.83 Other fatigue
CPT/HCPCS: 71046

== ENCOUNTER → 2024-12-02 11:12 | Outpatient (CLI) | payer MEDICARE, OTHER, SELFPAY ==
[2019-09-07 14:37] VITALS: BMI 30.7
[2024-12-02 11:58] LABS: Hemoglobin A1C% w Est Avg Glu 5.4 % (4.0-6.0)
[2024-12-02 12:44] LABS: BUN Creatinine Ratio 15.9 (6-22); Blood Urea Nitrogen 14 mg/dL (9-20); Calcium 9.9 mg/dL (8.4-10.2); Carbon Dioxide 32 mmol/L (22-32); Chloride 103 mmol/L (98-107); Estimated Glomerular Filt Rate > 60 mL/min (>60); Glucose 108 mg/dL (70-99); HEMOLYSIS < 15 (0-50); Potassium 4.7 mmol/L (3.4-5.1); Sodium 140 mmol/L (137-145)
== END ==
PROVIDERS: PCP Family Medicine; Referring Provider Family Medicine; Visit Provider Family Medicine
DX: E11.69 Type 2 diabetes mellitus with other specified complication (principal); I10 Essential (primary) hypertension; E78.5 Hyperlipidemia, unspecified
CPT/HCPCS: 36415; 80048; 83036

== ENCOUNTER → 2025-06-16 16:28 | Outpatient (CLI) | payer MEDICARE, OTHER, SELFPAY ==
[2019-09-07 14:37] VITALS: BMI 30.7
[2025-06-16 17:30] LABS: Hematocrit 36.7 % (41-53); Hemoglobin 12.4 g/dL (13.5-17.5); Mean Corpuscular HGB Conc 33.7 % (30-36); Mean Corpuscular Hemoglobin 30.1 PG (26-34); Mean Corpuscular Volume 89.5 fL (80-100); Platelet Count 193 X10^3/uL (150-400)
[2025-06-16 17:40] LABS: Hemoglobin A1C% w Est Avg Glu 5.4 % (4.0-6.0)
[2025-06-16 17:46] LABS: Alanine Aminotransferase 16 IU/L (<50); Albumin 4.4 g/dL (3.5-5.0); Albumin Globulin Ratio 1.7 (1.0-2.8); Alkaline Phosphatase 74 U/L (38-126); Blood Urea Nitrogen 24 mg/dL (9-20); Calcium 9.5 mg/dL (8.4-10.2); Carbon Dioxide 30 mmol/L (22-32); Chloride 105 mmol/L (98-107); Estimated Glomerular Filt Rate > 60 mL/min (>60); Globulin 2.6 g/dL (1.7-4.1); Glucose 109 mg/dL (70-99); HEMOLYSIS < 15 (0-50); Lipase 150 U/L (23-300); Potassium 4.7 mmol/L (3.4-5.1); Sodium 141 mmol/L (137-145); Total Protein 7.0 g/dL (6.3-8.2)
== END ==
PROVIDERS: PCP Family Medicine; Referring Provider Family Medicine; Visit Provider Family Medicine
DX: D64.9 Anemia, unspecified (principal); I10 Essential (primary) hypertension; E11.9 Type 2 diabetes mellitus without complications; E11.69 Type 2 diabetes mellitus with other specified complication; E78.5 Hyperlipidemia, unspecified
CPT/HCPCS: 36415; 80053; 83036; 83690; 85027